=== PATIENT | female | born 1955 | race Caucasian/White ===

== ENCOUNTER → 2016-08-08 | Outpatient (CLI) | payer BC ==
[~2016-08-08] MED LIST: DICL-201 PO; IBUP600T44 PO; MULT-506 PO
[2016-08-08 10:05] LABS: BLOOD UREA NITROGEN 19 mg/dl (7-18); BUN/CREATININE RATIO 23.5 (10-20); CALCIUM 9.5 mg/dl (8.5-10.1); CARBON DIOXIDE 24 mmol/L (21-32); CHLORIDE 109 mmol/L (98-107); CHOLESTEROL 230 mg/dl (0-200); CREATININE 0.82 mg/dl (0.60-1.20); GLUCOSE 97 mg/dl (70-99); POTASSIUM 3.9 mmol/L (3.5-5.1); SODIUM 145 mmol/L (136-145); TRIGLYCERIDES 118 mg/dl (0-150); VERY LOW DENSITY LIPOPROT CALC 24 mg/dl
[2016-08-08 10:15] LABS: CHOLESTEROL/HDL RATIO 3.4; HDL CHOLESTEROL 68 mg/dl; LDL CHOLESTEROL CALCULATED 138 mg/dl
== END | disposition home or self-care (01) ==
LOC: C.LAB 09:05
PROVIDERS: ATTEND Family Medicine
DX: E78.5 Hyperlipidemia, unspecified (principal); Z13.1 Encounter for screening for diabetes mellitus; Z20.5 Contact with and (suspected) exposure to viral hepatitis; E04.1 Nontoxic single thyroid nodule

== ENCOUNTER → 2016-08-19 | Outpatient (CLI) | payer BC ==
--- NOTE | 2016-08-19 14:08 | DIAGNOSTIC IMAGING REPORT ---
THYROID ULTRASONOGRAPHY CLINICAL HISTORY: Nontoxic single thyroid nodule COMPARISON STUDY: No previous studies for comparison. FINDINGS: The right lobe of thyroid measures 4.9 x 1.4 x 1.4 cm. There is a 7 mm mid pole circumscribed mid echogenicity nodule. There is a 5 mm lower pole hypoechoic nodule, possibly cystic. The left lobe measures 5 x 2 x 2.9 cm. There is a complex lower pole relatively isoechoic circumscribed nodule measuring 3.5 x 2.1 x 2.1 cm. This contains multiple calcifications. This nodule meets criteria for biopsy recommendation. IMPRESSION: Multinodular thyroid gland. There is a complex lower pole left lobe nodule containing areas of calcification measuring 35 x 21 x 21 mm. This meets ultrasound criteria for biopsy recommendation. Electronically signed by: Fareed Capellan M.D. 08/19/2016 2:06 PM Dictated Date/Time: 08/19/2016 2:03 PM
== END | disposition home or self-care (01) ==
LOC: C.ULTRBC 13:19
PROVIDERS: ATTEND Family Medicine
DX: E04.2 Nontoxic multinodular goiter (principal)